=== PATIENT | male | born 1955 | race Caucasian/White ===

== ENCOUNTER 2021-07-08 13:07 | Emergency (ER) | payer MEDICARE, OTHER ==
[~2021-07-08] VITALS: Ht 180.3 cm; Wt 100.0 kg
[2021-07-08 13:20] VITALS: BP 124/80
[2021-07-08] MEDS ORDERED: SOTROVIMAB 500mg injection 500 MG in normal saline 100ml IV soln 100 ML IV ONE (15:05)
== END 2021-07-08 17:29 | disposition home or self-care (01) ==
LOC: ER 13:07
DX: U07.1 COVID-19 (principal); R50.9 Fever, unspecified
CPT/HCPCS: 71045; 87635; 93005; 99285; C9803; J3490; M0247; Q0247